=== PATIENT | female | born 1995 | race Caucasian/White ===

== ENCOUNTER 2017-02-07 00:30 | Emergency (ER) | payer OTHER | END 2017-02-07 07:57 | disposition home or self-care (01) | LOC: FTE 00:30 | DX: R05 Cough (principal) | CPT/HCPCS: 71010; 87880; 99284-25 ==

== ENCOUNTER 2017-09-06 10:50 | Emergency (ER) | payer SELFPAY, OTHER | END 2017-09-06 11:30 | disposition left against medical advice (07) | LOC: FTE 10:50 | DX: Z53.21 Procedure and treatment not carried out due to patient leaving prior to being seen by health care provider (principal) ==

== ENCOUNTER 2017-11-01 11:43 | Emergency (ER) | payer MEDICARE, OTHER ==
[2017-11-01] MEDS: KETOROLAC 30 MG INJ IV (14:25)
[2017-11-01] MEDS: METHYLPREDNISOLONE 125 MG INJ IV (14:25)
[2017-11-01 15:53] LABS: MONOTEST Negative (NEG)
[2017-11-01] MEDS: CLINDAMYCIN 300 MG CAP PO (16:18)
== END 2017-11-01 17:11 | disposition home or self-care (01) ==
LOC: FTE 11:43
DX: J02.0 Streptococcal pharyngitis (principal)
CPT/HCPCS: 81025; 86308; 87070; 87880; 96374; 96375; 99284-25

== ENCOUNTER 2017-12-04 21:27 | Emergency (ER) | payer MEDICARE, OTHER ==
[2017-12-04] MEDS: KETOROLAC 15 MG INJ IM (22:52)
[2017-12-04] MEDS: PENICILLIN G BENZ 1.2 MIL UNIT SYG IM (22:52)
== END 2017-12-05 00:06 | disposition home or self-care (01) ==
LOC: FTE 12-05 00:06
DX: J02.0 Streptococcal pharyngitis (principal)
CPT/HCPCS: 81025; 96372; 99284-25

== ENCOUNTER 2018-01-28 23:13 | Emergency (ER) | payer MEDICARE, OTHER ==
[2018-01-29] MEDS: SOD CHLORIDE 0.9% 1,000 ML IV (00:01)
[2018-01-29] MEDS: morphine 4 MG/ML VIAL IV (00:01)
[2018-01-29] MEDS: ONDANSETRON 4 MG INJ IV (00:01)
[2018-01-29 00:21] LABS: ADD MAN DIFF? NO
[2018-01-29 00:29] LABS: BASOPHIL # 0.1 10^3/ul (0.0-0.1); BASOPHILS % 0.8 % (0.0-2.0); EOSINOPHILS # 0.3 10^3/ul (0.0-0.5); EOSINOPHILS % 2.5 % (0.0-7.0); HEMATOCRIT 39.6 % (37.0-47.0); HEMOGLOBIN 12.5 g/dl (12.0-16.0); LYMPHOCYTES # 4.1 10^3/ul (0.8-2.9); LYMPHOCYTES % 29.5 % (18.0-55.0); MEAN CORPUSCULAR HEMOGLOBIN 28.6 pg (29.0-33.0); MEAN CORPUSCULAR HGB CONC 31.6 g/dl (32.0-37.0); MEAN CORPUSCULAR VOLUME 90.6 fl (72.0-104.0); MEAN PLATELET VOLUME 10.1 fl (7.4-10.4); MONOCYTE # 1.2 10^3/ul (0.3-0.9); MONOCYTES % 8.9 % (0.0-13.0); NEUTROPHIL # 8.1 10^3/ul (1.6-7.5); NEUTROPHILS % 58.1 % (30.0-74.0); PLATELET COUNT 418 10^3/UL (140-415); RED BLOOD COUNT 4.37 10^6/ul (4.20-5.40); RED CELL DISTRIBUTION WIDTH 13.9 % (11.5-14.5)
[2018-01-29 00:29] LABS: WHITE BLOOD COUNT 13.9 10^3/ul (4.8-10.8)
[2018-01-29 00:42] LABS: ADD UMIC NO; UR ASCORBIC ACID NEGATIVE (NEGATIVE); UR BILIRUBIN (Dip) NEGATIVE (NEGATIVE); UR BLOOD (Dip) NEGATIVE (NEGATIVE); UR CLARITY CLEAR (CLEAR); UR COLOR YELLOW (YELLOW); UR GLUCOSE (Dip) NEGATIVE (NEGATIVE); UR KETONES (Dip) NEGATIVE (NEGATIVE); UR LEUKOCYTE ESTERASE (Dip) NEGATIVE Leu/ul (NEGATIVE); UR NITRITE (Dip) NEGATIVE (NEGATIVE); UR SPECIFIC GRAVITY (Dip) 1.024 (1.003-1.030); UR TOTAL PROTEIN (Dip) NEGATIVE (NEGATIVE); UR UROBILINOGEN (Dip) NEGATIVE (NEGATIVE)
[2018-01-29 00:48] LABS: INR 1.02; PROTIME 13.5 Sec (11.9-14.9); PT RATIO 1.1
[2018-01-29 00:49] LABS: ALANINE AMINOTRANSFERASE 23 IU/L (13-69); ALBUMIN 4.5 g/dl (3.3-4.9); ALKALINE PHOSPHATASE 71 IU/L (42-121); ANION GAP 11 (5-13); ASPARTATE AMINO TRANSFERASE 15 IU/L (15-46); BILIRUBIN,INDIRECT 0.3 mg/dl (0-1.1); BILIRUBIN,TOTAL 0.3 mg/dl (0.2-1.3); BLOOD UREA NITROGEN 12 mg/dl (7-20); CALCIUM 9.4 mg/dl (8.4-10.2); CARBON DIOXIDE 31 mmol/L (21-31); CHLORIDE 101 mmol/L (97-110); CREATININE 0.66 mg/dl (0.44-1.00); Estimated GFR > 60 mL/min (>60); GLUCOSE 87 mg/dl (70-220); LIPASE 70 U/L (23-300); PARTIAL THROMBOPLASTIN TIME 30.3 Sec (23.0-35.0); POTASSIUM 4.1 mmol/L (3.5-5.1); SODIUM 143 mmol/L (135-144); TOTAL PROTEIN 7.5 g/dl (6.1-8.1)
[2018-01-29] MEDS: KETOROLAC 15 MG INJ IV (01:47)
== END 2018-01-29 01:55 | disposition home or self-care (01) ==
LOC: FTE 23:13
DX: N83.292 Other ovarian cyst, left side (principal)
CPT/HCPCS: 36415; 74176; 80053; 81003; 81025; 83690; 85025; 85610; 85730; 96374; 96375; 99285-25

== ENCOUNTER 2018-02-06 22:13 | Emergency (ER) | payer SELFPAY, OTHER, MEDICARE | END 2018-02-06 23:00 | disposition left against medical advice (07) | LOC: E/R 22:13 | DX: Z53.21 Procedure and treatment not carried out due to patient leaving prior to being seen by health care provider (principal) ==

== ENCOUNTER 2018-03-23 22:23 | Emergency (ER) | payer MEDICARE, OTHER ==
[2018-03-24] MEDS: HYDROCODONE/APAP (5/325) TAB PO (00:01)
== END 2018-03-24 00:32 | disposition home or self-care (01) ==
LOC: FTE 03-24 00:32
DX: M79.602 Pain in left arm (principal)
CPT/HCPCS: 99283

== ENCOUNTER 2018-06-06 21:37 | Emergency (ER) | payer SELFPAY, OTHER, MEDICARE | END 2018-06-06 23:31 | disposition left against medical advice (07) | LOC: FTE 21:37 | DX: Z53.21 Procedure and treatment not carried out due to patient leaving prior to being seen by health care provider (principal) ==

== ENCOUNTER 2018-06-26 11:28 | Emergency (ER) | payer MEDICARE, OTHER, MEDICAID ==
[2018-06-26 12:14] LABS: ADD MAN DIFF? NO
[2018-06-26 12:17] LABS: WHITE BLOOD COUNT 8.2 10^3/ul (4.8-10.8)
[2018-06-26 12:17] LABS: BASOPHIL # 0.1 10^3/ul (0.0-0.1); BASOPHILS % 1.1 % (0.0-2.0); EOSINOPHILS # 0.2 10^3/ul (0.0-0.5); EOSINOPHILS % 2.3 % (0.0-7.0); HEMATOCRIT 40.8 % (37.0-47.0); HEMOGLOBIN 13.3 g/dl (12.0-16.0); LYMPHOCYTES # 2.7 10^3/ul (0.8-2.9); LYMPHOCYTES % 32.5 % (18.0-55.0); MEAN CORPUSCULAR HGB CONC 32.6 g/dl (32.0-37.0); MEAN CORPUSCULAR VOLUME 89.1 fl (72.0-104.0); MEAN PLATELET VOLUME 9.7 fl (7.4-10.4); MONOCYTE # 0.8 10^3/ul (0.3-0.9); MONOCYTES % 9.4 % (0.0-13.0); NEUTROPHIL # 4.5 10^3/ul (1.6-7.5); NEUTROPHILS % 54.5 % (30.0-74.0); PLATELET COUNT 399 10^3/UL (140-415); RED BLOOD COUNT 4.58 10^6/ul (4.20-5.40); RED CELL DISTRIBUTION WIDTH 12.8 % (11.5-14.5)
[2018-06-26 12:37] LABS: ADD UMIC YES; UR ASCORBIC ACID NEGATIVE (NEGATIVE); UR BILIRUBIN (Dip) NEGATIVE (NEGATIVE); UR BLOOD (Dip) 3+ mg/dL (NEGATIVE); UR CLARITY CLOUDY (CLEAR); UR COLOR YELLOW (YELLOW); UR GLUCOSE (Dip) NEGATIVE (NEGATIVE); UR KETONES (Dip) NEGATIVE (NEGATIVE); UR LEUKOCYTE ESTERASE (Dip) NEGATIVE Leu/ul (NEGATIVE); UR NITRITE (Dip) NEGATIVE (NEGATIVE); UR RBC > 182 /HPF (0-5); UR SQUAMOUS EPITHELIAL CELL FEW /HPF (FEW); UR TOTAL PROTEIN (Dip) NEGATIVE (NEGATIVE); UR UROBILINOGEN (Dip) NEGATIVE (NEGATIVE); UR WBC 25 /HPF (0-5)
== END 2018-06-26 13:51 | disposition left against medical advice (07) ==
LOC: FTE 13:51
DX: O20.9 Hemorrhage in early pregnancy, unspecified (principal); R10.2 Pelvic and perineal pain; Z3A.00 Weeks of gestation of pregnancy not specified
CPT/HCPCS: 36415; 76801; 81001; 84702; 85025; 86900; 86901; 99284-25

== ENCOUNTER 2018-06-28 19:21 | Emergency (ER) | payer MEDICARE, OTHER ==
[2018-06-28] MEDS: SOD CHLORIDE 0.9% 1,000 ML IV (21:17)
[2018-06-28] MEDS: ONDANSETRON 4 MG INJ IV (21:17)
[2018-06-28 21:20] LABS: ADD MAN DIFF? NO
[2018-06-28 21:22] LABS: BASOPHIL # 0.1 10^3/ul (0.0-0.1); BASOPHILS % 0.8 % (0.0-2.0); EOSINOPHILS # 0.1 10^3/ul (0.0-0.5); EOSINOPHILS % 0.9 % (0.0-7.0); HEMATOCRIT 40.6 % (37.0-47.0); HEMOGLOBIN 13.3 g/dl (12.0-16.0); LYMPHOCYTES # 1.7 10^3/ul (0.8-2.9); MEAN CORPUSCULAR HEMOGLOBIN 29.4 pg (29.0-33.0); MEAN CORPUSCULAR HGB CONC 32.8 g/dl (32.0-37.0); MEAN CORPUSCULAR VOLUME 89.8 fl (72.0-104.0); MEAN PLATELET VOLUME 9.9 fl (7.4-10.4); MONOCYTES % 6.8 % (0.0-13.0); NEUTROPHIL # 11.1 10^3/ul (1.6-7.5); NEUTROPHILS % 79.2 % (30.0-74.0); PLATELET COUNT 396 10^3/UL (140-415); RED BLOOD COUNT 4.52 10^6/ul (4.20-5.40); RED CELL DISTRIBUTION WIDTH 12.5 % (11.5-14.5)
[2018-06-28 21:22] LABS: WHITE BLOOD COUNT 14.1 10^3/ul (4.8-10.8)
[2018-06-28 21:28] LABS: ADD UMIC YES; UR ASCORBIC ACID NEGATIVE (NEGATIVE); UR BILIRUBIN (Dip) NEGATIVE (NEGATIVE); UR BLOOD (Dip) 1+ mg/dL (NEGATIVE); UR CLARITY SLIGHTLY CLOUDY (CLEAR); UR COLOR YELLOW (YELLOW); UR GLUCOSE (Dip) NEGATIVE (NEGATIVE); UR KETONES (Dip) NEGATIVE (NEGATIVE); UR LEUKOCYTE ESTERASE (Dip) NEGATIVE Leu/ul (NEGATIVE); UR NITRITE (Dip) NEGATIVE (NEGATIVE); UR RBC 1 /HPF (0-5); UR SPECIFIC GRAVITY (Dip) 1.014 (1.003-1.030); UR SQUAMOUS EPITHELIAL CELL FEW /HPF (FEW); UR TOTAL PROTEIN (Dip) NEGATIVE (NEGATIVE); UR UROBILINOGEN (Dip) NEGATIVE (NEGATIVE); UR WBC 1 /HPF (0-5)
[2018-06-28 21:40] LABS: ANION GAP 4 (5-13); BLOOD UREA NITROGEN 16 mg/dl (7-20); CALCIUM 9.2 mg/dl (8.4-10.2); CARBON DIOXIDE 33 mmol/L (21-31); CHLORIDE 104 mmol/L (97-110); CREATININE 0.72 mg/dl (0.44-1.00); Estimated GFR > 60 mL/min (>60); GLUCOSE 102 mg/dl (70-220); POTASSIUM 4.6 mmol/L (3.5-5.1); SODIUM 141 mmol/L (135-144)
[2018-06-28] MEDS: morphine 4 MG/ML VIAL IV (22:13)
== END 2018-06-28 23:19 | disposition home or self-care (01) ==
LOC: FTE 19:21
DX: R10.2 Pelvic and perineal pain (principal); R11.2 Nausea with vomiting, unspecified
CPT/HCPCS: 36415; 76830; 76856; 80048; 81001; 84702; 85025; 96374; 96375; 99285-25

== ENCOUNTER 2018-09-27 12:15 | Emergency (ER) | payer OTHER, MEDICARE ==
[2018-09-27] MEDS: ACETAMINOPHEN 500 MG TAB PO (12:52)
== END 2018-09-27 13:12 ==
LOC: E/R 12:15
DX: R51 Headache (principal); R06.4 Hyperventilation; F41.0 Panic disorder [episodic paroxysmal anxiety]
CPT/HCPCS: 99283